=== PATIENT | male | born 1970 | race Caucasian/White ===

== ENCOUNTER 2017-03-14 16:55 | Emergency (ER) | payer MEDICARE, OTHER | END 2017-03-14 18:56 | disposition home or self-care (01) | LOC: ER 16:55 | DX: J44.1 Chronic obstructive pulmonary disease with (acute) exacerbation (principal); K21.9 Gastro-esophageal reflux disease without esophagitis; E11.9 Type 2 diabetes mellitus without complications; I10 Essential (primary) hypertension; E78.00 Pure hypercholesterolemia, unspecified; F17.210 Nicotine dependence, cigarettes, uncomplicated; Z90.49 Acquired absence of other specified parts of digestive tract; Z79.899 Other long term (current) drug therapy | CPT/HCPCS: 94640; 96372; J1100 ==